=== PATIENT | male | born 1975 | race Hispanic/Latino ===

== ENCOUNTER 2023-07-14 16:44 | Emergency (ER) | payer OTHER, SELFPAY ==
[2023-07-14] MEDS ORDERED: Ketorolac Tromethamine 30 MG (1 mL) VIAL ONE (17:15)
== END 2023-07-14 18:05 | disposition home or self-care (01) ==
LOC: ERS 16:44
DX: S00.33XA Contusion of nose, initial encounter (principal); W22.8XXA Striking against or struck by other objects, initial encounter
CPT/HCPCS: 70150; 96372; J1885